=== PATIENT | female | born 1995 | race Caucasian/White ===

== ENCOUNTER 2017-08-25 20:53 | Emergency (ER) | payer BC ==
[~2017-08-25] VITALS: Ht 162.6 cm; Wt 83.9 kg
[~2017-08-25 20:53] MED LIST: ALLEGRA ALLERG180 MG; ALLEGRA ALLERG180 MG PO; CITRATE OF MAG296 ML PO; FLEXERIL PO; HYDROCODONE-AP1 EAC6 PO; IBUPROFEN 800800 M1 PO; NASACORT10.8 ML NS; NORCO 5-325 TA1 EACH PO; ONDANSETRON HCL4 M2 PO; PREDNISONE50 MG PO; PROAIR HFA8.5 GM; RHINOCORT ALL8.43 ML NS; SINGULAIR 10 MG10 M1 PO; SPRINTEC1 EACH PO; TEMOVATE30 GM TP; TRAMADOL 50 MG50 MG PO; TRI-SPRINTEC1 EACH PO; XANAX 0.5 MG0.5 MG PO; ZOFRAN ODT4 MG PO; ZOLOFT25 MG PO; ZYRTEC; ZYRTEC10 M4 PO
[2017-08-25 21:24] LABS: URINE BILIRUBIN NEGATIVE (Negative); URINE BLOOD NEGATIVE (Negative); URINE CLARITY CLEAR; URINE COLOR YELLOW; URINE GLUCOSE-RANDOM NEGATIVE (Negative); URINE KETONES NEGATIVE (Negative); URINE LEUKOCYTES-REFLEX NEGATIVE (Negative); URINE NITRITE-REFLEX NEGATIVE (Negative); URINE PROTEIN NEGATIVE (Negative); URINE SPECIFIC GRAVITY >= 1.030 (1.005-1.030); URINE UROBILINOGEN 0.2 E.U./dl (0.2-1.0)
[2017-08-25 21:26] LABS: HEMATOCRIT 40.7 % (37.0-47.0); HEMOGLOBIN 13.5 gm/dL (12.0-15.0); MCH 28.9 pg (26.0-34.0); MCHC 33.2 g/dL (28.0-37.0); MCV 86.8 fL (80.0-100.0); MPV 8.1 fl. (7.2-11.1); NUCLEATED RBCS 0 /100WBC; PLATELET COUNT* 392 thou/uL (150-400); RBC 4.69 mil/uL (4.20-5.00); RDW-CV 12.6 % (10.5-14.5)
[2017-08-25 21:35] LABS: CALCIUM 9.4 mg/dL (8.5-10.1); CREATININE 1.1 mg/dL (0.6-1.3); POTASSIUM 3.7 mmol/L (3.5-5.1)
[2017-08-25 21:39] LABS: ALBUMIN 3.4 g/dL (3.4-5.0); TOTAL BILIRUBIN 0.3 mg/dL (<0.1-1.0); TOTAL PROTEIN 7.9 g/dL (6.4-8.2)
[2017-08-25 21:51] LABS: ABSOLUTE EOSINOPHILS 0.5 thou/uL (0.0-0.7); ABSOLUTE LYMPHOCYTES 2.1 thou/uL (0.8-5.3); ABSOLUTE MONOCYTES 0.5 thou/uL (0.0-1.2)
[2017-08-25 21:52] LABS: PLATELET ESTIMATE ADEQUATE
[2017-08-25] MEDS ORDERED: COMPAZINE10 MG PO (23:40)
[2017-08-25] MEDS ORDERED: BENTYL 20 MG TA20 M1 PO (23:40)
[2017-08-26 00:18] VITALS: BP 109/78
== END 2017-08-25 23:58 | disposition home or self-care (01) ==
LOC: M.ERS 20:53
PROVIDERS: Nurse Practitioner Family
DX: K52.9 Noninfective gastroenteritis and colitis, unspecified (principal); F41.9 Anxiety disorder, unspecified; F32.9 Major depressive disorder, single episode, unspecified; Z90.49 Acquired absence of other specified parts of digestive tract

== ENCOUNTER 2018-03-31 20:09 | Emergency (ER) | payer BC ==
[~2018-03-31] VITALS: Ht 162.6 cm; Wt 78.0 kg
[~2018-03-31 20:09] MED LIST changes: +BENTYL 20 MG TA20 M1 PO; +COMPAZINE10 MG PO
[2018-03-31] MEDS ORDERED: CLARITIN10 MG PO (20:23)
[2018-03-31 20:40] LABS: ABSOLUTE LYMPHOCYTES 0.9 thou/uL (0.8-5.3); ABSOLUTE MONOCYTES 0.4 thou/uL (0.0-1.2); ABSOLUTE NEUTROPHILS 5.5 thou/uL (1.6-8.1); BASOPHILS 0.4 %; EOSINOPHILS 0.6 %; HEMATOCRIT 39.9 % (37.0-47.0); HEMOGLOBIN 13.6 gm/dL (12.0-15.0); LYMPHOCYTES 13.4 %; MCH 29.3 pg (26.0-34.0); MCHC 33.9 g/dL (28.0-37.0); MCV 86.3 fL (80.0-100.0); MPV 8.4 fl. (7.2-11.1); NUCLEATED RBCS 0 /100WBC; PLATELET COUNT* 335 thou/uL (150-400); POLYS 79.6 %; RBC 4.63 mil/uL (4.20-5.00); RDW-CV 13.3 % (10.5-14.5); WBC 6.9 thou/uL (4.0-11.0)
[2018-03-31 20:49] LABS: CALCIUM 9.5 mg/dL (8.5-10.1); CREATININE 0.9 mg/dL (0.6-1.3); POTASSIUM 3.7 mmol/L (3.5-5.1)
[2018-03-31 20:54] LABS: ALBUMIN 3.7 g/dL (3.4-5.0); TOTAL BILIRUBIN 0.4 mg/dL (<0.1-1.0)
[2018-03-31 21:01] LABS: URINE BLOOD NEGATIVE (Negative); URINE CLARITY CLEAR; URINE COLOR YELLOW; URINE GLUCOSE-RANDOM NEGATIVE (Negative); URINE KETONES 1+ (Negative); URINE LEUKOCYTES-REFLEX NEGATIVE (Negative); URINE NITRITE-REFLEX NEGATIVE (Negative); URINE PROTEIN NEGATIVE (Negative); URINE SPECIFIC GRAVITY 1.025 (1.005-1.030); URINE UROBILINOGEN 0.2 E.U./dl (0.2-1.0)
[2018-03-31 21:02] LABS: URINE BILIRUBIN 1+ (Negative)
[2018-03-31 21:08] LABS: ICTOTEST (BILI CONFIRMATORY) Negative (Negative)
[2018-03-31] MEDS ORDERED: ZOFRAN4 MG PO (21:13)
[2018-03-31 21:37] VITALS: BP 98/47
== END 2018-03-31 21:40 | disposition home or self-care (01) ==
LOC: M.ERS 20:09
PROVIDERS: Nurse Practitioner Family
DX: R11.2 Nausea with vomiting, unspecified (principal); R19.7 Diarrhea, unspecified; J45.909 Unspecified asthma, uncomplicated; F41.9 Anxiety disorder, unspecified; F32.9 Major depressive disorder, single episode, unspecified; Z90.49 Acquired absence of other specified parts of digestive tract

== ENCOUNTER → 2018-08-01 | Outpatient (CLI) | payer BC ==
[~2018-08-01] MED LIST changes: +CLARITIN10 MG PO; +ZOFRAN4 MG PO
== END ==
LOC: M.ULTRA 07:26
DX: R16.2 Hepatomegaly with splenomegaly, not elsewhere classified (principal)

== ENCOUNTER 2019-08-30 05:47 | Emergency (ER) | payer BC ==
[~2019-08-30] VITALS: Ht 162.6 cm; Wt 81.7 kg
[2019-08-30 06:07] LABS: URINE BLOOD NEGATIVE (Negative); URINE CLARITY CLEAR; URINE COLOR YELLOW; URINE GLUCOSE-RANDOM NEGATIVE (Negative); URINE KETONES 1+ (Negative); URINE LEUKOCYTES-REFLEX TRACE (Negative); URINE NITRITE-REFLEX NEGATIVE (Negative); URINE PROTEIN 1+ (Negative); URINE SPECIFIC GRAVITY >= 1.030 (1.005-1.030)
[2019-08-30 06:12] LABS: ICTOTEST (BILI CONFIRMATORY) Negative (Negative); URINE BILIRUBIN 2+ (Negative)
[2019-08-30 06:17] LABS: AMORPHOUS URATES Few /LPF (None Seen); CASTS None Seen /LPF (None Seen); MUCUS 0-3 Light strn/LPF (None Seen); SQUAMOUS 4-10 Moderate /LPF (0-3); URINE RBC 0-2 Rare /HPF (0-2); URINE WBC-REFLEX 0-5 Rare /HPF (0-5)
[2019-08-30 06:22] LABS: HEMATOCRIT 32.6 % (37.0-47.0); HEMOGLOBIN 11.2 gm/dL (12.0-15.0); MCH 29.4 pg (26.0-34.0); MCHC 34.2 g/dL (28.0-37.0); MPV 7.9 fl. (7.2-11.1); NUCLEATED RBCS 0 /100WBC; PLATELET COUNT* 380 thou/uL (150-400); RBC 3.79 mil/uL (4.20-5.00); WBC 12.3 thou/uL (4.0-11.0)
[2019-08-30 06:28] LABS: INR 1.1
[2019-08-30 06:30] LABS: CALCIUM 8.9 mg/dL (8.5-10.1); CREATININE 0.8 mg/dL (0.6-1.3); POTASSIUM 3.2 mmol/L (3.5-5.1)
[2019-08-30 06:40] LABS: ALBUMIN 2.9 g/dL (3.4-5.0); MAGNESIUM 1.7 mg/dL (1.8-2.4); TOTAL BILIRUBIN 0.6 mg/dL (<0.1-1.0); TOTAL PROTEIN 7.5 g/dL (6.4-8.2)
[2019-08-30 06:54] LABS: ABSOLUTE LYMPHOCYTES 0.6 thou/uL (0.8-5.3); ABSOLUTE MONOCYTES 0.2 thou/uL (0.0-1.2); ABSOLUTE NEUTROPHILS 11.4 thou/uL (1.6-8.1); PLATELET ESTIMATE ADEQUATE
[2019-08-30] MEDS ORDERED: PROAIR HFA8.5 GM INH (07:19)
[2019-08-30] MEDS ORDERED: LORCET 5-325 M1 EACH PO (07:19)
[2019-08-30] MEDS ORDERED: ZOFRAN ODT4 MG PO (07:19)
[2019-08-30 07:38] VITALS: BP 103/43
--- NOTE | 2019-08-30 16:37 | EKG ---
[place] [address] ELECTROCARDIOGRAM REPORT Name: VENICE COPPOLA Room: [facility]#: [id number] Admission: 08/30/19 Attend Phys: Discharge: 08/30/19 Date of : [birth year] Date of Service: 08/30/19614 Report #: [id number] THIS REPORT FOR: //name// [facility] ED Test Date: 2019-08-30 Test Time: 06:15:08 Pat Name: VENICE COPPOLA Department: Room: Gender: F Marketing Account Executive: [facility] : 1995 Requested By: Dara Perez Order Number: [id number] MD: Kevin Sanchez Measurements Intervals [place] Rate: 99 P: 58 SD: 121 QRS: 58 QRSD: 97 T: 43 QT: 336 QTc: 432 Interpretive Statements Sinus rhythm No previous ECG available for comparison Electronically Signed On 08-30-2019 16:35:56 CDT by Kevin Sanchez [email or web address] <ELECTRONICALLY SIGNED> By: Kevin Sanchez MD, [facility] 08/30/19 1635 4 4 Kevin Sanchez MD, FACC /EPI
== END 2019-08-30 07:45 | disposition home or self-care (01) ==
LOC: M.ERS 05:47
PROVIDERS: Emergency Medicine
DX: J22 Unspecified acute lower respiratory infection (principal); Z20.828 Contact with and (suspected) exposure to other viral communicable diseases; R11.2 Nausea with vomiting, unspecified; Z90.49 Acquired absence of other specified parts of digestive tract

== ENCOUNTER 2019-09-01 22:44 | Inpatient (IN) | payer BC ==
[~2019-09-01] VITALS: Ht 162.6 cm; Wt 85.0 kg
--- NOTE | ~2019-09-01 | CON ---
[address] [address] CONSULTATION Name: VENICE COPPOLA Room: [address] IN M.R.#: [id number] Admission: 09/02/19 Attend Phys: Mary Phillip MD Discharge: Date of : [birth year] Report #: [id number] THIS REPORT FOR: //name// cc: TATIANA - [place] family physician/PCP TATIANA - No family physician/PCP ~ THIS REPORT FOR: //name// CC: TAT[place] physician/PCP Mary Phillip DATE OF SERVICE: 09/03/2019 INFECTIOUS DISEASE CONSULTATION REASON FOR CONSULTATION: I was asked to evaluate concerning pneumonia and possible COVID-19. HISTORY OF PRESENT ILLNESS: A 23-year-old otherwise healthy individual who presents with a 6-day history with acute onset of fever, chills, cough, nausea, anorexia and diarrhea. 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 Lives with her parents and has been social distancing. Parents have been well. She went to the urgent care the day that she developed the fever and was COVID tested negative. The next day she presented to Emergency Room with persistent fever. She was COVID tested negative at that time. Despite this, she continues to have fever with cough and sputum production, purulent in nature without hemoptysis. She has developed some pleuritic chest pain in the right side. She has had persistent nausea and anorexia. No further vomiting. She has had loose stools without blood. She has noticed some mucus. She denies any rashes or arthritis. She has lost a significant amount of her sense of taste. Has mild headache. No photophobia. No abdominal pain. Becomes more short of breath when she lies flat. Now is on 3 liters of oxygen per nasal cannula. She denies any peripheral edema. No palpitations or chest pain other than the pleuritic discomfort to her right side. ALLERGIES: None known. MEDICATIONS: As noted on her MAR, now on albuterol, azithromycin and ceftriaxone. Also takes Xanax, Zyrtec, Melia, control and Zoloft. PAST MEDICAL HISTORY: Anxiety, depression, mild asthma, appendectomy, cholecystectomy, broken leg and wisdom teeth extraction. FAMILY HISTORY: No tuberculosis reported. SOCIAL HISTORY: Nonsmoker, no significant alcohol intake. She is in [place] [address] CONSULTATION Name: VENICE COPPOLA Room: [address]#: [id number] Admission: 09/02/19 Attend Phys: Mary Phillip MD Discharge: Date of : [birth year] Report #: [id number] REVIEW OF SYSTEMS: A 14-point review was negative other than what has been described above. PHYSICAL EXAMINATION: VITAL SIGNS: Temperature is 100.8 degrees, maximum temperature is 101.8, heart rate 119, blood pressure 114/60. She is on 3 liters of oxygen per nasal cannula. GENERAL: She was alert, cooperative, and pleasant. She was anxious. She was tachypneic. SKIN: Without rash or decubitus. No palpable adenopathy. EYES: Without scleral icterus. MOUTH: Without mucositis. NECK: Supple, with no thyromegaly. LUNGS: Few crackles in the mid posterior chest. No consolidation. No rub. HEART: Tachycardic and regular without appreciable murmur, gallop or rub. ABDOMEN: Soft and nontender with no hepatosplenomegaly or mass. EXTREMITIES: Without clubbing, cyanosis or edema. She was a bit anxious. She was tearful. NEUROLOGIC: Cranial nerves intact. Strength in upper and lower extremities was normal. Sensation in the upper and lower extremities within normal limits. LABORATORY STUDIES: Reviewed. MICROBIOLOGY: Reviewed. Chest x-ray reviewed. IMPRESSION: A 23-year-old with bilateral pulmonary infiltrates, which have developed over the last 4 days. She is now hypoxic. She has risk factors for COVID-19, although initial studies have been negative. Her symptoms do suggest this diagnosis. Other consideration would be community-acquired bacterial pneumonia. Doubt other opportunistic infection. RECOMMENDATIONS: We will check viral respiratory panel, bacterial cultures and antigen testing. Continue with IV antibiotic therapy to include healthcare-associated organisms. We will repeat COVID testing. Continue isolation procedures. Oxygen supplementation. By: [address] [place] MD /christina
[2019-09-01 22:44] VITALS: BP 130/82
[~2019-09-01 22:44] MED LIST changes: +LORCET 5-325 M1 EACH PO; +PROAIR HFA8.5 GM INH
[2019-09-01 23:25] LABS: ABSOLUTE LYMPHOCYTES 0.9 thou/uL (0.8-5.3); ABSOLUTE MONOCYTES 0.1 thou/uL (0.0-1.2); ABSOLUTE NEUTROPHILS 10.7 thou/uL (1.6-8.1); BASOPHILS 0.2 %; EOSINOPHILS 0.2 %; HEMATOCRIT 30.8 % (37.0-47.0); HEMOGLOBIN 10.7 gm/dL (12.0-15.0); LYMPHOCYTES 7.7 %; MCH 29.8 pg (26.0-34.0); MCHC 34.6 g/dL (28.0-37.0); MONOCYTES 0.7 %; MPV 7.4 fl. (7.2-11.1); NUCLEATED RBCS 0 /100WBC; PLATELET COUNT* 383 thou/uL (150-400); POLYS 91.2 %; RBC 3.58 mil/uL (4.20-5.00); RDW-CV 12.1 % (10.5-14.5); WBC 11.8 thou/uL (4.0-11.0)
[2019-09-01 23:38] LABS: CALCIUM 8.6 mg/dL (8.5-10.1); CREATININE 0.9 mg/dL (0.6-1.3)
[2019-09-01 23:39] LABS: POTASSIUM 2.9 mmol/L (3.5-5.1)
[2019-09-01 23:40] LABS: INR 1.2; PROTIME 11.9 Seconds (9.20-11.50)
[2019-09-01 23:47] LABS: ALBUMIN 2.3 g/dL (3.4-5.0); TOTAL BILIRUBIN 0.8 mg/dL (<0.1-1.0); TOTAL PROTEIN 7.2 g/dL (6.4-8.2)
[2019-09-01 23:52] LABS: URINE BLOOD NEGATIVE (Negative); URINE CLARITY CLEAR; URINE COLOR ORANGE; URINE GLUCOSE-RANDOM NEGATIVE (Negative); URINE KETONES TRACE (Negative); URINE LEUKOCYTES-REFLEX TRACE (Negative); URINE NITRITE-REFLEX NEGATIVE (Negative); URINE PROTEIN 1+ (Negative); URINE SPECIFIC GRAVITY 1.015 (1.005-1.030)
[2019-09-01 23:54] LABS: URINE BILIRUBIN 2+ (Negative)
[2019-09-02] VITALS (8 sets, daily range): BP systolic 93–115; BP diastolic 51–74
[2019-09-02] LABS: BACTERIA-REFLEX >30 Many /HPF (None Seen); CASTS None Seen /LPF (None Seen); CRYSTALS None Seen /LPF (None Seen); MUCUS 4-6 Moderate strn/LPF (None Seen); SQUAMOUS 4-10 Moderate /LPF (0-3); TRANSITIONAL EPITHEL CELL 0-3 Few /LPF (None Seen); URINE RBC 3-10 Few /HPF (0-2); URINE WBC-REFLEX 6-15 Few /HPF (0-5)
[2019-09-02 02:27] LABS: INFLUENZA A ANTIGEN Negative (Negative); INFLUENZA B ANTIGEN Negative (Negative)
[2019-09-02] MEDS ORDERED: ZYRTEC10 M5 PO (03:00)
[2019-09-02] MEDS ORDERED: ALLEGRA ALLERG180 MG PO (03:03)
[2019-09-02] MEDS ORDERED: SPRINTEC1 EACH PO (03:04)
[2019-09-02] MEDS ORDERED: ZOLOFT50 M1 PO (03:12)
[2019-09-02] MEDS ORDERED: ZOLOFT100 MG PO (03:13)
--- NOTE | 2019-09-02 06:19 | NUR ---
REPORT RECIEVED FROM ER. PT ORIENTED TO ROOM, CALL LIGHT SHOWN. PT INSTRUCTED TO USE CALL LIGHT TO GET UP IF FEELING WEAK OR UNSTEADY. ADMISSION DOCUMENTED. IV PATENT, FLUIDS INFUSING. AZITHROMYCIN STARTED, SHORTLY AFTER PT BECAME FLUSHED AND NAUSEATED, SYMPTOMS RESOLVED IMMEDIATLY AFTER TURNING OFF ABX. DR NOTIFED. TYLENOL GIVEN FOR TEMP. TELE MONITOR IN PLACE. PT ABLE TO MAKE NEEDS KNOWN. WILL CONTINUE WITH PLAN OF CARE.
--- NOTE | 2019-09-02 10:50 | EKG ---
[place] [address] ELECTROCARDIOGRAM REPORT Name: COPPOLAVENICE ALTAF Room: [address] ADM IN ..#: [id number] Admission: 09/02/19 Attend Phys: Mary Phillip, Discharge: Date of : [birth year] Date of Service: 09/01/19 230 Report #: [id number] THIS REPORT FOR: //name// [facility] ED Test Date: 2019-09-01 Test Time: 23:06:28 Pat Name: VENICE COPPOLA Department: Room: [facility] Gender: F Apartment House Manager: CINTHIA : 1995 Requested By: Dara Perez Order Number: [id number] MD: Dev Jordan Measurements Intervals [place] Rate: 124 P: 53 NM: 124 QRS: 58 QRSD: 97 T: 26 QT: 300 QTc: 431 Interpretive Statements Sinus tachycardia Compared to ECG 08/30/2019 06:15:08 Sinus rhythm no longer present Electronically Signed On 09-02-2019 10:48:17 CDT by Dev Jordan [email or web address] <ELECTRONICALLY SIGNED> By: Paco Jordan MD, [facility] 09/02/19 1048 05 05 Paco Jordan MD, [facility] /EPI
--- NOTE | 2019-09-02 17:46 | NUR ---
PATIENT ALERT AND ORIENTED X 4. VITAL SIGNS STABLE ON 4L O2 NASAL CANULA. UP INDEPENDENTLY IN ROOM. IV PATENT WITH FLUIDS INFUSING. DENIES NAUSEA AT THIS TIME. PAIN BEING MANAGED WITH IV MEDICATION. ISOLATION MAINTAINED FOR PENDING COVID-19. CALL LIGHT WITHIN REACH. NURSING WILL CONTINUE TO MONITOR.
[2019-09-03 03:53] VITALS: BP 96/54
--- NOTE | 2019-09-03 06:12 | NUR ---
PT AWAKE MOST OF SHIFT. ASSESSMENT DOCUMENTED. MEDS GIVEN PER E-JUN. IV PATENT, FLUIDS INFUSING. ELECTROLYTES REPLACED PER E-MAR. PT TEARFUL AT TIMES THIS SHIFT. PAIN MEDS GIVEN PER E-MAR. PT NAUSOUS AT TIMES THIS SHIFT, MEDS GIVEN WITH RELIEF. PT ABLE TO MAKE NEEDS KNOWN. WILL CONTINUE WITH PLAN OF CARE.
[2019-09-03 08:00] VITALS: BP 101/49
[2019-09-03 08:27] LABS: CALCIUM 8.6 mg/dL (8.5-10.1); CREATININE 0.7 mg/dL (0.6-1.3); MAGNESIUM 1.7 mg/dL (1.8-2.4); POTASSIUM 3.9 mmol/L (3.5-5.1)
[2019-09-03 12:00] VITALS: BP 114/60
[2019-09-03 16:00] VITALS: BP 115/64
--- NOTE | 2019-09-03 18:03 | NUR ---
PT C/O PAIN OVER HER LT SHOULDER AND ABD RUQ, PAIN MEDS PER EMAR. PT TEARFUL AND ANXIOUS, EMOTIONAL SUPPORT GIVEN. TYELENOL GIVEN ONCE FOR LOW GRADE FEVER. COVID TEST RESENT THIS AM. CXR DONE. NS AT 100 MLS/HR. MAG REPLACED PER PROTOCOL. O2 SUPPORT TITRATED DOWN TO 3L/MIN, SATS >95%
[2019-09-03 20:52] VITALS: BP 107/61
[2019-09-04] VITALS: BP 97/38
[2019-09-04 04:00] VITALS: BP 106/44
--- NOTE | 2019-09-04 05:55 | NUR ---
PATIENT HAS SLEPT OFF AND ON DURING THE NIGHT. VSS ON 4L 02 VIA NASAL CANNULA, ALTHOUGH TEMP SLIGHTLY ELEVATED, PULSE TACHY AND BP SLIGHTLY LOW. PATIENT UP AD-OPHELIA TO THE BATHROOM. MEDICATIONS GIVEN ORDERED AND CHARTED. ASSESSMENT CHARTED. PATIENT REMAINS ON CLEAR LIQUIDS AT THIS TIME. IV IN LEFT AC-NS @ 100ML/HR. IV ABT'S GIVEN WITHOUT ANY ADVERSE SIDE EFFECTS NOTED. PATIENT INSTRUCTED TO USE CALL LIGHT WHEN NEEDING ASSISTANCE. HOURLY ROUNDS MADE. WILL CONTINUE WITH PLAN OF CARE AND NURSING TO MONITOR.
[2019-09-04 08:30] VITALS: BP 139/69
[2019-09-04 12:00] VITALS: BP 112/75
--- NOTE | 2019-09-04 12:54 | NUR ---
PT REPORTS DIZZINESS. STATES SHE HASNT EATEN ANYTHING EXCEPT WATER IN SEVERAL DAYS. PT HAS BEEN REFUSING TRAYS WHICH CONSIST OF CLEAR LIQUIDS. SHE STATES THAT "EVERYTHING TASTES LIKE CHEMICALS". PT ADVANCED TO REGULAR DIET. ENCOURAGED PT TO DRINK SODA AND FLUIDS BESIDES WATER. ENCOURAGED PT TO HAVE FAMILT BRING FOOD OF HER CHOICE TO THE HOSPITAL BUT PT REFUSES.
--- NOTE | 2019-09-04 16:33 | NUR ---
PT.ALERT AND ORIENTED. STATED SHE LIVES WITH HER MOM. SHE IS INDEPENDENT AND NORMALLY ACTIVE. 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 NO USE OF DME. NO HX OFHH. HAS A POOR APPETITE. STATED EVERYTHING TASTES LIKE CHEMICALS. CM WILL FOLLOW FOR DISCHARGE PLANNING.
--- NOTE | 2019-09-04 16:56 | NUR ---
PT RESTING IN BED THROUGHOUT SHIFT. PT UP IN ROOM WITH STEADY GAIT. CALLS APPROPRIATELT FOR ASSIST. REPORTS RIGHT SIDED CHEST PAIN WITH BREATHING IMPROVED BY NORCO. CONTINUES TO REPORT SOA WITH EXERTION. PT POOR PO INTAKE,FOOD DROPPED OFF BY FAMILY THIS EVENING. STACH ON MONITOR. FEVER THIS AFTERNOON. AWAITING REPEAT COVID TESTING. PT REMAINS IN ENHANCED PRECAUTIONS. ROUNDING MINIMIZED TO WHEN PT CALLS FOR ASSIST OR NEEDS CARE TO MINIMIZE POSSIBLE STAFF EXPOSURE TO COVID 19
[2019-09-04 17:00] VITALS: BP 137/72
[2019-09-04 20:50] VITALS: BP 120/79
[2019-09-05] VITALS: BP 118/80
[2019-09-05 04:00] VITALS: BP 110/90
--- NOTE | 2019-09-05 06:37 | NUR ---
PATIENT HAS SLEPT OFF AND ON DURING THE NIGHT. VSS ON 4L 02 VIA NASAL CANNULA. C/O SOA. BREATHING TX'S GIVEN. MEDICATIONS GIVEN ORDERED AND CHARTED. ASSESSMENT CHARTED. PATIENT REMAINS IN ENHANCED PRECAUTIONS. ROUNDING MINIMIZED TO WHEN PATIENT CALLS FOR ASSISTANCE OR NEEDS CARE TO MINIMIZE POSSIBLE STAFF EXPOSURE TO COVID 19.
[2019-09-05 07:52] VITALS: BP 121/71
[2019-09-05 12:55] VITALS: BP 129/79
[2019-09-05 16:18] VITALS: BP 112/66
--- NOTE | 2019-09-05 16:58 | NUR ---
PT REMAINED ALERT AND ORIENTED. PT C/O NAUSEA, MEDS GIVEN ORDERED. PT HAD AN ACCIDENT WITH LOOSE BM, PT CLEANED UP. FALL RISK PRECAUTIONS IN PLACE. HOURLY ROUNDING COMPLETED. WILL CONTINUE TO MONITOR. PT ON DROPLET PRECAution for viral panel pending.
[2019-09-05 20:00] VITALS: BP 114/74
--- NOTE | 2019-09-06 04:14 | NUR ---
PT A&O, SAT 94% ON 4L. MEDS GIVEN ORDERED. PT DENIED PAIN. NO C/O NAUSEA OR VOMITING THIS SHIFT. PT USES BSC FOR HAVING LOOSE STOOL. ANXIETY ISSUE IN THE MIDDLE OF THE NIGHT. PT CRIED AND STATED "I JUST WANT TO SLEEP AND I CANT" BENEDRYL GIVEN. DROPLET PRECAUTION MAINTAINED. WILL CONTINUE TO MONITOR.
[2019-09-06 07:35] VITALS: BP 123/84
--- NOTE | 2019-09-06 17:33 | NUR ---
PT A&OX4 VSS. PT ANXIOUS AND STATING SHE WANTS TO GO HOME INITIALLY, BUT LATER STATED SHE WAS NAUSEOUS AND DID NOT FEEL THAT SHE WAS GOOD TO GO HOME TODAY. PT REMAINS ON OXYGEN BY NASAL CANNULA. PT UP AD OPHELIA, GAIT STEADY. PT C/O LOOSE STOOLS, CULTURE FOR C-DIFF ORDERED THIS AFTERNOON. IV TO LFA PATENT, DRESSING C/D/I. PT REMAINS ON DROPLET PRECAUTIONS. EXERCISE OXIMETRY ORDER FOR TOMORROW. PT UP TO SHOWER THIS EVENING, BED LINENS CHANGED. BELONGINGS TO PT ROOM FROM PT MOM. PT SLEPT THIS MORNING, AND STATES SHE WAS ABLE TO FEEL RESTED. PT IMPROVED THIS AFTERNOON, NO C/O NAUSEA OR VOMITING. PT AGAIN STATES THIS EVENING SHE JUST WANTS TO BE ABLE TO GO HOME. PT RESTING IN ROOM AT THIS TIME WITH CALL LIGHT AND PERSONAL BELONGINGS IN REACH. WILL CONTINUE TO MONITOR CONTINUE TO MONITOR. PT MOTHER UPDATED WHEN THIS NURSE COLLECTED PT BELONGINGF
[2019-09-06 20:00] VITALS: BP 110/72
[2019-09-07 04:50] VITALS: BP 114/68
--- NOTE | 2019-09-07 05:32 | NUR ---
Alert and oriented x 4. She"s using O2 at 4L n/c upper lobes have wheezes and lower lobes are diminished. She is up independently in the bathroom. Vitals are stable.
[2019-09-07 07:57] LABS: ABSOLUTE BASOPHILS 0.1 thou/uL (0.0-0.2); ABSOLUTE EOSINOPHILS 0.2 thou/uL (0.0-0.7); ABSOLUTE LYMPHOCYTES 1.7 thou/uL (0.8-5.3); ABSOLUTE MONOCYTES 0.3 thou/uL (0.0-1.2); ABSOLUTE NEUTROPHILS 4.8 thou/uL (1.6-8.1); BASOPHILS 0.9 %; HEMATOCRIT 29.5 % (37.0-47.0); HEMOGLOBIN 10.2 gm/dL (12.0-15.0); LYMPHOCYTES 23.9 %; MCH 29.7 pg (26.0-34.0); MCHC 34.5 g/dL (28.0-37.0); MONOCYTES 4.7 %; MPV 6.6 fl. (7.2-11.1); NUCLEATED RBCS 0 /100WBC; PLATELET COUNT* 518 thou/uL (150-400); POLYS 67.5 %; RBC 3.43 mil/uL (4.20-5.00); WBC 7.2 thou/uL (4.0-11.0)
[2019-09-07 08:16] LABS: CALCIUM 8.3 mg/dL (8.5-10.1); CREATININE 0.7 mg/dL (0.6-1.3); POTASSIUM 3.2 mmol/L (3.5-5.1); TOTAL BILIRUBIN 0.4 mg/dL (<0.1-1.0); TOTAL PROTEIN 6.7 g/dL (6.4-8.2)
[2019-09-07 09:20] VITALS: BP 133/80
[2019-09-07 09:48] VITALS: BP 114/68
[2019-09-07 09:53] VITALS: BP 114/68
--- NOTE | 2019-09-07 10:23 | NUR ---
PT.WILL NEED HOME O2 AT DISCHARGE, TODAY, PER O2 RESTING AND EXERCISE SATS DONE BY Aniyah. SPOKE WITH PT. SHE WAS AWARE. SHE DID NOT HAVE A PREFERENCE OF O2 COMPANIES. FRANK CONTACTED [facility]/[id number] AND FAXED FACE SHEET,O2 SATS,ORDER AND PT.CARE NOTE. HE WILL DELIVER PORTABLE O2 TANK TO HOSPITAL. PT.WILL NEED TO CALL [facility] TO SCHEDULE DELIVERY WHEN SHE LEAVE HOSPITAL OR ON ARRIVING HOME. NUMBER PROVIDED. NURSING TO GIVE PT.COPY OF HOSPITAL OWNED PHYSICIAN PRACTICES ASA SHE DOES NOT HAVE A PCP.
[2019-09-07 12:49] VITALS: BP 114/68
[2019-09-07] MEDS ORDERED: CEFDINIR300 MG PO (12:55)
--- NOTE | 2019-09-07 13:40 | NUR ---
PATIENT DISCHARGED TO HOME W/ OXYGEN. O2 TANK AT 2L/NC. DISCHARGE INSTRUCTIONS REVIEWED W/ PATIENT. PATIENT STATES VERBALLY OF UNDERSTANDING. COPY OF INSTRUCTIONS AND ORIG SCRIPT GIVEN TO PATIENT. BELONINGS GATHERED PER PATIENT. O2 TANK/NC SET UP. PATIENT ESCORTED TO AWAITING VEHICLE PER WC W/ NURSING PRESENT. BELONGINGS W/ PATIENT. PATIENT DENIES OTHER NURSING NEEDS AT THIS TIME. MOTHER PRESENT TO DRIVE PATIENT HOME. PATIENT REMINDED TO CALL OXYGEN COMPANY FOR HOME SET-UP. ~TJRN
== END 2019-09-07 13:40 | disposition home or self-care (01) | DRG 193 ==
LOC: M.ERS 22:44 → M.TBA-ER 09-02 00:51 → M.ORTHSURG 09-02 00:51
PROVIDERS: Emergency Medicine; Internal Medicine; Specialist; ADMIT Internal Medicine
DX: J18.9 Pneumonia, unspecified organism (principal); J96.91 Respiratory failure, unspecified with hypoxia; E87.1 Hypo-osmolality and hyponatremia; F32.9 Major depressive disorder, single episode, unspecified; F41.9 Anxiety disorder, unspecified; J45.909 Unspecified asthma, uncomplicated; F17.290 Nicotine dependence, other tobacco product, uncomplicated; D72.829 Elevated white blood cell count, unspecified; E87.6 Hypokalemia; Z90.49 Acquired absence of other specified parts of digestive tract; Z88.8 Allergy status to other drugs, medicaments and biological substances; Z91.012 Allergy to eggs; Z20.828 Contact with and (suspected) exposure to other viral communicable diseases

== ENCOUNTER 2020-10-06 03:48 | Emergency (ER) | payer OTHER ==
[~2020-10-06] VITALS: Ht 162.6 cm; Wt 87.1 kg
[~2020-10-06 03:48] MED LIST changes: +CEFDINIR300 MG PO; +ZOLOFT100 MG PO; +ZOLOFT50 M1 PO; +ZYRTEC10 M5 PO
[2020-10-06] MEDS ORDERED: ZOLOFT50 M1 PO (04:10)
[2020-10-06] MEDS ORDERED: BENADRYL25 MG PO (04:11)
[2020-10-06 05:11] LABS: URINE BILIRUBIN NEGATIVE (Negative); URINE BLOOD NEGATIVE (Negative); URINE CLARITY CLEAR; URINE COLOR STRAW; URINE GLUCOSE-RANDOM NEGATIVE (Negative); URINE KETONES NEGATIVE (Negative); URINE LEUKOCYTES-REFLEX NEGATIVE (Negative); URINE NITRITE-REFLEX NEGATIVE (Negative); URINE PROTEIN NEGATIVE (Negative); URINE SPECIFIC GRAVITY 1.025 (1.005-1.030); URINE UROBILINOGEN 0.2 E.U./dl (0.2-1.0)
[2020-10-06 05:13] LABS: ABSOLUTE BASOPHILS 0.1 thou/uL (0.0-0.2); ABSOLUTE EOSINOPHILS 0.2 thou/uL (0.0-0.7); ABSOLUTE LYMPHOCYTES 2.3 thou/uL (0.8-5.3); ABSOLUTE MONOCYTES 0.5 thou/uL (0.0-1.2); ABSOLUTE NEUTROPHILS 7.9 thou/uL (1.6-8.1); BASOPHILS 0.6 %; EOSINOPHILS 2.1 %; HEMOGLOBIN 12.2 gm/dL (12.0-15.0); LYMPHOCYTES 20.6 %; MCH 29.5 pg (26.0-34.0); MCHC 33.9 g/dL (28.0-37.0); MONOCYTES 4.9 %; MPV 8.4 fl. (7.2-11.1); NUCLEATED RBCS 0 /100WBC; PLATELET COUNT* 301 thou/uL (150-400); POLYS 71.8 %; RBC 4.14 mil/uL (4.20-5.00); RDW-CV 12.9 % (10.5-14.5); WBC 10.9 thou/uL (4.0-11.0)
[2020-10-06 05:19] LABS: AMP/METHAMP Negative (Negative); BARBITURATES Negative (Negative); BENZODIAZEPINES Negative (Negative); COCAINE Negative (Negative); METHADONE Negative (Negative); OPIATES Negative (Negative); PCP Negative (Negative); THC POSITIVE (Negative)
[2020-10-06 05:23] LABS: ANION GAP 15 mmol/L (7-16); BUN 12 mg/dL (7-18); CALCIUM 9.9 mg/dL (8.5-10.1); CHLORIDE 103 mmol/L (98-107); CO2 20 mmol/L (21-32); GLUCOSE 120 mg/dL (70-99); POTASSIUM 3.8 mmol/L (3.5-5.1); SODIUM 138 mmol/L (136-145)
[2020-10-06 05:30] LABS: ALBUMIN 3.8 g/dL (3.4-5.0); ALKALINE PHOSPHATASE 34 U/L (46-116); LIPASE 206 U/L (73-393); SGOT 19 U/L (15-37); SGPT 9 U/L (30-65); TOTAL BILIRUBIN < 0.1 mg/dL (<0.1-1.0); TOTAL PROTEIN 8.1 g/dL (6.4-8.2)
[2020-10-06] MEDS ORDERED: PHENERGAN 25 MG25 M1 PO ×3 (06:36→06:53)
[2020-10-06] MEDS ORDERED: CARAFATE 1 GM TA1 GM PO ×3 (06:36→06:53)
[2020-10-06] MEDS ORDERED: PROMS25 WY RECTAL ×3 (06:36→06:53)
[2020-10-06 06:50] VITALS: BP 148/94
== END 2020-10-06 06:50 | disposition home or self-care (01) ==
LOC: M.ERS 03:48
PROVIDERS: Personal Emergency Response Attendant
DX: R11.2 Nausea with vomiting, unspecified (principal); R10.13 Epigastric pain; J45.909 Unspecified asthma, uncomplicated; Z91.012 Allergy to eggs; Z91.011 Allergy to milk products; Z91.018 Allergy to other foods; Z88.8 Allergy status to other drugs, medicaments and biological substances; Z90.49 Acquired absence of other specified parts of digestive tract; Z79.899 Other long term (current) drug therapy

== ENCOUNTER 2021-04-27 17:23 | Emergency (ER) | payer OTHER ==
[~2021-04-27] VITALS: Ht 162.6 cm; Wt 95.3 kg
[~2021-04-27 17:23] MED LIST changes: +BENADRYL25 MG PO; +CARAFATE 1 GM TA1 GM PO; +PHENERGAN 25 MG25 M1 PO; +PROMS25 WY RECTAL
[2021-04-27] MEDS ORDERED: XYZAL5 MG PO (17:45)
[2021-04-27] MEDS ORDERED: SENNA8.8 MG/5 M PO (17:45)
[2021-04-27 20:28] LABS: ABSOLUTE LYMPHOCYTES 1.1 thou/uL (0.8-5.3); ABSOLUTE MONOCYTES 0.2 thou/uL (0.0-1.2); ABSOLUTE NEUTROPHILS 6.3 thou/uL (1.6-8.1); BASOPHILS 0.4 %; EOSINOPHILS 0.2 %; HEMOGLOBIN 12.6 gm/dL (12.0-15.0); LYMPHOCYTES 14.5 %; MCH 29.1 pg (26.0-34.0); MCHC 33.1 g/dL (28.0-37.0); MCV 87.9 fL (80.0-100.0); MONOCYTES 2.4 %; MPV 7.7 fl. (7.2-11.1); NUCLEATED RBCS 0 /100WBC; PLATELET COUNT* 326 thou/uL (150-400); POLYS 82.5 %; RBC 4.33 mil/uL (4.20-5.00); RDW-CV 12.7 % (10.5-14.5); WBC 7.7 thou/uL (4.0-11.0)
[2021-04-27 20:37] LABS: CALCIUM 8.9 mg/dL (8.5-10.1)
[2021-04-27 20:41] LABS: ALBUMIN 3.2 g/dL (3.4-5.0); TOTAL BILIRUBIN 0.2 mg/dL (<0.1-1.0); TOTAL PROTEIN 7.9 g/dL (6.4-8.2)
[2021-04-27] MEDS ORDERED: PHENERGAN 25 MG25 M1 PO (21:02)
[2021-04-27] MEDS ORDERED: PROMS25 WY RECTAL (21:02)
[2021-04-27 21:20] VITALS: BP 128/90
== END 2021-04-27 21:21 | disposition home or self-care (01) ==
LOC: M.ERS 17:23
PROVIDERS: Nurse Practitioner Family
DX: R11.15 Cyclical vomiting syndrome unrelated to migraine (principal); J45.909 Unspecified asthma, uncomplicated; F41.9 Anxiety disorder, unspecified; F32.9 Major depressive disorder, single episode, unspecified; Z90.49 Acquired absence of other specified parts of digestive tract; Z98.890 Other specified postprocedural states; Z79.899 Other long term (current) drug therapy; Z88.8 Allergy status to other drugs, medicaments and biological substances; Z91.018 Allergy to other foods; Z91.011 Allergy to milk products; Z91.012 Allergy to eggs